=== PATIENT | male | born 1990 | race African-American/Black ===

== ENCOUNTER → 2018-01-30 21:00 | Emergency (ER) | payer SELFPAY ==
[~2018-01-30 21:00] MED LIST: Clindamycin 600 MG IVPREMIX(* 600 MG/50 ML SDV IV ONE; Iohexol 300* (CONTRAST) 10 ML SDV IV ONE; Ketorolac INJ* 30 MG/ML 1 ML VIAL IV PUSH ONE
[2018-01-30 22:42] LABS: ABS Basophils 0 10^3/ul (0-0.2); ABS Eosinophils 0 10^3/ul (0-0.6); ABS Lymphocytes 1.2 10^3/ul (1.0-4.8); ABS Neutrophils 12.2 10^3/ul (1.5-7.7); ABS Nucleated RBC 0 10^3/ul; Eosinophil % 0.3 % (0-6); Hematocrit 41 % (42-52); Hemoglobin 13.9 g/dl (14.0-18.0); Lymphocyte % 8.2 % (25-47); Mean Corpuscular HGB Conc 34 g/dl (31-36); Mean Corpuscular Hemoglobin 31 pg (27-31); Mean Corpuscular Volume 92 fL (80-94); Mean Platelet Volume 8.1 um3 (7.4-10.4); Nucleated Red Blood Cells % 0; Platelet Count 228 10^3/ul (150-450); Red Blood Count 4.41 10^6/ul (4.00-5.40); Red Cell Distribution Width 13 % (10.5-15); White Blood Count 14.4 10^3/ul (3.5-10.8)
--- NOTE | 2018-01-31 00:40 | RAD ---
EXAM: CT Maxillofacial With Intravenous Contrast EXAM DATE/TIME: 01/30/2018 11:51 PM CLINICAL HISTORY: 27 years old, male; Pain; Jaw pain; Additional info: Right sided facial swelling TECHNIQUE: Axial computed tomography images of the face with intravenous contrast. All CT scans at this facility use at least one of these dose optimization techniques: automated exposure control; mA and/or kV adjustment per patient size (includes targeted exams where dose is matched to clinical indication); or iterative reconstruction. CONTRAST: 75 ml of OMNI 300 administered intravenously. COMPARISON: No relevant prior studies available. FINDINGS: Bones/joints: No acute fracture. Soft tissues: Subcutaneous edema of the submandibular neck, right greater than left. Prominent soft tissue swelling adjacent to the right mandibular body with abscess based against the mid body measuring approximately 2.8 x 1.1 cm. Orbits: No acute intraorbital abnormality. Globes are unremarkable. Sinuses: Rounded mucosal thickening in the left maxillary sinus minimal ethmoid, sphenoid and bilateral maxillary mucosal thickening. Dental: Periodontal disease involving tooth #30 which is greatest around the anterior rootlet and is at the center of the abscess. IMPRESSION: 1. 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 Although no significant buccal aspect erosion is noted, there is a large abscess against the buccal aspect of the adjacent mandibular body measuring 2.8 x 1.1 cm. There is prominent surrounding soft tissue swelling and thickening with subcutaneous edema extending into the submandibular neck, right greater than left. 2. Minimal bilateral maxillary, ethmoid and sphenoid sinus disease with a moderate retention cyst in the left maxillary sinus. To contact [facility] with a general question: [facility] - [phone] For direct physician to physician contact: Physician Hotline - [phone] [facility] ([facility] Facility ID #[id number])
--- NOTE | 2018-01-31 01:07 | ED ---
Throat Pain/Nasal Congestion - HPI Summary HPI Summary: 27-year-old male presents with dental pain for the past couple days. He states that he has been having increasing swelling to the right side of his jaw. No fevers. No swelling around eyes or pain with eye movement. No chest pain or shortness of breath. no difficulty swallowing. Has been using ibuprofen occasionally for pain. Does have history of dental infections. Has not followed up with dentist. On exam has swelling of right lower jaw. Potential abscess felt in the mouth. Discuss with patient options and will get a CT due to see if abscess is presents. Labs white blood cell count elevated. Gave a dose of Clindamycin. CT shows abscess. Wanted to drain abscess but the patient refuses. States will follow up with dentist for drainage. Warned if any changes to return to ED. Patient understands agrees with plan. - History of Current Complaint Chief Complaint: EDDentalPain Time Seen by Provider: 01/30/18 22:13 - Allergies/Home Medications Allergies/Adverse Reactions: Allergies Allergy/AdvReac Type Severity Reaction Status Date / Time No Known Allergies Allergy Verified 01/30/18 21:08 PMH/Surg Hx/FS Hx/Imm Hx Endocrine/Hematology History: Denies: Hx Anticoagulant Therapy Respiratory History: Denies: Hx Asthma Infectious Disease History: No Infectious Disease History: Denies: Traveled Outside the [place] in Last 30 Days - Family History Known Family History: Positive: Hypertension - Social History Alcohol Use: Occasionally Substance Use Type: Reports: Marijuana Substance Use Comment - Amount & Last Used: daily Smoking Status (MU): Light Every Day Tobacco Smoker Review of Systems Negative: Fever Positive: Dental Pain Negative: Chest Pain Negative: Shortness Of Breath All Other Systems Reviewed And Are Negative: Yes Physical Exam Triage Information Reviewed: Yes Vital Signs On Initial Exam: Initial Vitals Temp Pulse Resp BP Pulse Ox 100.4 F 121 16 132/86 98 01/30/18 21:05 01/30/18 21:05 01/30/18 21:05 01/30/18 21:05 01/30/18 21:05 Vital Signs Reviewed: Yes Appearance: Positive: Well-Appearing Skin: Positive: Warm, Dry Head/Face: Positive: Other - swelling right side of face Eyes: Positive: Normal, EOMI, BENEDICTO, Conjunctiva Clear Dental: Positive: Percussion Tenderness @ - 20, Abscess @ - right mandible, Other - nontender sublingual area Neck: Positive: Supple, Nontender, No Lymphadenopathy Respiratory/Lung Sounds: Positive: Clear to Auscultation, Breath Sounds Present Cardiovascular: Positive: Normal, RRR Musculoskeletal: Positive: Normal Neurological: Positive: Normal Psychiatric: Positive: Normal Diagnostics - Vital Signs Vital Signs Temp Pulse Resp BP Pulse Ox 01/30/18 21:05 100.4 F 121 16 132/86 98 - Laboratory Lab Results: Lab Results 01/30/18 01/30/18 01/30/18 Range/Units 22:33 22:33 22:33 WBC 14.4 H (3.5-10.8) 10^3/ul RBC 4.41 (4.00-5.40) 10^6/ul Hgb 13.9 L (14.0-18.0) g/dl Hct 41 L (42-52) % MCV 92 (80-94) fL MCH 31 (27-31) pg MCHC 34 (31-36) g/dl RDW 13 (10.5-15) % Plt Count 228 (150-450) 10^3/ul MPV 8.1 (7.4-10.4) um3 Neut % (Auto) 84.4 H (38-83) % Lymph % (Auto) 8.2 L (25-47) % Ogle % (Auto) 6.9 (0-7) % Eos % (Auto) 0.3 (0-6) % Baso % (Auto) 0.2 (0-2) % Absolute Neuts (auto) 12.2 H (1.5-7.7) 10^3/ul Absolute Lymphs (auto) 1.2 (1.0-4.8) 10^3/ul Absolute Monos (auto) 1.0 H (0-0.8) 10^3/ul Absolute Eos (auto) 0 (0-0.6) 10^3/ul Absolute Basos (auto) 0 (0-0.2) 10^3/ul Absolute Nucleated RBC 0 10^3/ul Nucleated RBC % 0 Sodium 137 (135-145) mmol/L Potassium 4.0 (3.5-5.0) mmol/L Chloride 104 (101-111) mmol/L Carbon Dioxide 27 (22-32) mmol/L Anion Gap 6 (2-11) mmol/L BUN 10 (6-24) mg/dL Creatinine 0.99 (0.67-1.17) mg/dL Est GFR ( Amer) 108.9 (>60) Est GFR (Non-Af Amer) 90.0 (>60) BUN/Creatinine Ratio 10.1 (8-20) Glucose 105 H (70-100) mg/dL Lactic Acid 0.4 L (0.5-2.0) mmol/L Calcium 9.4 (8.6-10.3) mg/dL Total Bilirubin 1.50 H (0.2-1.0) mg/dL AST 15 (13-39) U/L ALT 8 (7-52) U/L Alkaline Phosphatase 53 (34-104) U/L Total Protein 7.4 (6.4-8.9) g/dL Albumin 4.4 (3.2-5.2) g/dL Globulin 3.0 (2-4) g/dL Albumin/Globulin Ratio 1.5 (1-3) Result Diagrams: 01/30/18 22:33 01/30/18 22:33 Lab Statement: Any lab studies that have been ordered have been reviewed, and results considered in the medical decision making process. - Radiology maxillaryfacial Radiology Interpretation Completed By: Radiologist Summary of Radiographic Findings: 1. 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 Although no significant buccal aspect. erosion is noted, there is a large abscess against the buccal aspect of the. adjacent mandibular body measuring 2.8 x 1.1 cm. There is prominent surrounding. soft tissue swelling and thickening with subcutaneous edema extending into the. submandibular neck, right greater than left. 2. Minimal bilateral maxillary, ethmoid and sphenoid sinus disease with a. moderate retention cyst in the left maxillary sinus. EENT Course/Dx - Course Course Of Treatment: 27-year-old male presents with dental pain for the past couple days. He states that he has been having increasing swelling to the right side of his jaw. No fevers. No swelling around eyes or pain with eye movement. No chest pain or shortness of breath. no difficulty swallowing. Has been using ibuprofen occasionally for pain. Does have history of dental infections. Has not followed up with dentist. On exam has swelling of right lower jaw. Potential abscess felt in the mouth. Discuss with patient options and will get a CT due to see if abscess is presents. Labs white blood cell count elevated. Gave a dose of Clindamycin. CT shows abscess. Wanted to drain abscess but the patient refuses. States will follow up with dentist for drainage. Warned if any changes to return to ED. sent home on clindamycin. Patient understands agrees with manisha - Differential Diagnoses Differential Diagnoses: Dental Abscess, Dental Caries, Fractured Tooth - Diagnoses Provider Diagnoses: Dental abscess Discharge - Sign-Out/Discharge Documenting (check all that apply): Patient Departure - Discharge Plan Condition: Good Disposition: HOME Patient Education Materials: Dental Abscess (ED) Referrals: Diallo Ignacio MD [Doctor of Dental Medicine] - Additional Instructions: Take clindamycin three times a day for 10 days Take ibuprofen or tyenlol every 6 hours for pain as needed Avoid hard, crunchy food until seen by dentist apply heat and massage area Return to ED if develop fever, shortness of breath, pain with eye movement or swelling around eye follow up with dentist as soon as possible - Billing Disposition and Condition Condition: GOOD Disposition: Home
[2018-01-31 01:28] VITALS: BP 114/66
== END | disposition home or self-care (01) ==
LOC: ED 21:00
DX: K04.7 Periapical abscess without sinus (principal); K08.89 Other specified disorders of teeth and supporting structures; F17.210 Nicotine dependence, cigarettes, uncomplicated
CPT/HCPCS: 36415; 70487; 80053; 83605; 85025; 96365; 96375; 99282; J1885; Q9967

== ENCOUNTER → 2018-08-28 00:11 | Emergency (ER) | payer SELFPAY ==
[~2018-08-28 00:11] MED LIST changes: -Clindamycin 600 MG IVPREMIX(* 600 MG/50 ML SDV IV ONE; +Clindamycin CAP* 150 MG PO ONE; +Ibuprofen TAB* 400 MG PO ONE; -Iohexol 300* (CONTRAST) 10 ML SDV IV ONE; -Ketorolac INJ* 30 MG/ML 1 ML VIAL IV PUSH ONE; +Lidocaine 2% EPI 1:200000 MPF*10-20 ML VIAL ONE; +oxyCODONE/Acetamin 5/325 MG* TAB PO ONE
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
[2018-08-28 03:07] VITALS: BP 141/79
== END | disposition home or self-care (01) ==
LOC: ED 00:11
DX: S01.81XA Laceration without foreign body of other part of head, initial encounter (principal); Y04.1XXA Assault by human bite, initial encounter; Y92.810 Car as the place of occurrence of the external cause; F17.200 Nicotine dependence, unspecified, uncomplicated
CPT/HCPCS: 12013; 99282; A9270-GY

== ENCOUNTER 2018-09-04 17:52 | Emergency (ER) | payer SELFPAY ==
[2018-09-04] MEDS ORDERED: Bacitracin OINTMENT* 0.5% 0.5 oz TUBE TOPICAL ONE (19:15)
--- NOTE | 2018-09-04 19:19 | ED ---
Laceration/Wound HPI - HPI Summary HPI Summary: Patient presents for removal of sutures from facial lacerations. Patient was seen here on 08/28 when sutures were placed. States he is compliant with antibiotics. Denies any new symptoms pain or injury. - History of Current Complaint Stated Complaint: NEED STITCHES REMOVED Time Seen by Provider: 09/04/18 18:25 Hx Obtained From: Patient Current Severity: None Pain Intensity: 0 Pain Scale Used: 0-10 Numeric Associated Signs & Symptoms: Negative - Allergy/Home Medications Allergies/Adverse Reactions: Allergies Allergy/AdvReac Type Severity Reaction Status Date / Time No Known Allergies Allergy Verified 09/04/18 18:05 PMH/Surg Hx/FS Hx/Imm Hx Endocrine/Hematology History: Denies: Hx Anticoagulant Therapy Cardiovascular History: Denies: Hx Pacemaker/ICD Respiratory History: Denies: Hx Asthma History: Denies: Hx Dialysis Sensory History: Denies: Hx Eye Prosthesis Opthamlomology History: Denies: Hx Legally Blind EENT History: Denies: Hx Deafness Neurological History: Denies: Hx Developmental Delay Psychiatric History: Denies: Hx Autism Infectious Disease History: No Infectious Disease History: Denies: Traveled Outside the [place] in Last 30 Days - Family History Known Family History: Positive: Hypertension - Social History Alcohol Use: Occasionally Substance Use Type: Reports: Marijuana Substance Use Comment - Amount & Last Used: daily Smoking Status (MU): Light Every Day Tobacco Smoker Review of Systems Constitutional: Negative Eyes: Negative ENT: Negative Cardiovascular: Negative Respiratory: Negative Gastrointestinal: Negative Genitourinary: Negative Musculoskeletal: Negative Skin: Other Neurological: Negative Psychological: Normal All Other Systems Reviewed And Are Negative: Yes Physical Exam Triage Information Reviewed: Yes Vital Signs On Initial Exam: Initial Vitals Temp Pulse Resp BP Pulse Ox 98.6 F 79 16 162/103 97 09/04/18 18:03 09/04/18 18:03 09/04/18 18:03 09/04/18 18:03 09/04/18 18:03 Vital Signs Reviewed: Yes Appearance: Positive: Well-Appearing Skin: Positive: Warm Head/Face: Positive: Normal Head/Face Inspection Eyes: Positive: Normal Neck: Positive: Supple Respiratory/Lung Sounds: Positive: Clear to Auscultation Cardiovascular: Positive: Normal Abdomen Description: Positive: Nontender Musculoskeletal: Positive: Normal Neurological: Positive: Normal Psychiatric: Positive: Normal AVPU Assessment: Alert - Dinora Coma Scale Best Eye Response: 4 - Spontaneous Best Motor Response: 6 - Obeys Commands Best Verbal Response: 5 - Oriented Coma Scale Total: 15 Diagnostics - Vital Signs Vital Signs Temp Pulse Resp BP Pulse Ox 09/04/18 18:03 98.6 F 79 16 162/103 97 - Laboratory Lab Statement: Any lab studies that have been ordered have been reviewed, and results considered in the medical decision making process. Laceration Repair Course/Dx - Course Course Of Treatment: Patient presents for removal of sutures from facial lacerations. Patient was seen here on 08/28 when sutures were placed. States he is compliant with antibiotics. Denies any new symptoms pain or injury. Physical exam: First laceration more medial: healing well. Second laceration closer to right ear appears to have opened sometime during the past 7 days. Wound is scabbed over. Clean dry and intact no purulent discharge. 21 documented sutures placed. 13 removed. pt states some "fell out". Patient advised to keep area clean and dry and intact. Continue taking antibiotics. - Clinical Impression Provider Diagnoses: Visit for suture removal Discharge - Sign-Out/Discharge Documenting (check all that apply): Patient Departure Patient Received Moderate/Deep Sedation with Procedure: No - Discharge Plan Condition: Stable Disposition: HOME Prescriptions: Clindamycin HCl 300 mg PO Q6H 3 Days #12 capsule Patient Education Materials: Stitches Removal (ED) Referrals: No Primary Care Phys,NOPCP [Primary Care Provider] - Additional Instructions: Keep lacerations on your face clean and dry. Wash with warm running water and soap. Continue to take antibiotics. Return to the ED for any new or worsening symptoms. - Billing Disposition and Condition Condition: STABLE Disposition: Home
[2018-09-04 19:36] VITALS: BP 139/96
== END 2018-09-04 19:35 | disposition home or self-care (01) ==
LOC: ED 17:52
DX: Z48.02 Encounter for removal of sutures (principal); Z72.0 Tobacco use
CPT/HCPCS: 99281; A9270-GY